=== PATIENT | female | born 1995 | race Caucasian/White ===

== ENCOUNTER 2025-05-07 10:47 | Emergency (ER) | payer OTHER, SELFPAY ==
[2025-05-07 10:54] VITALS: BP 113/82
--- NOTE | 2025-05-07 11:23 | ED.GENMED ---
History of Present Illness
General
Chief Complaint: Swelling
Source: patient
Exam Limitations: none
Time Seen by Provider: 05/07/25 11:07
History of Present Illness
History of Present Illness:
29 year old female presents with left hip and thigh pain starting 2 days ago and persistent today. No chest pain or shortness of breath. She does note a 2-hour one-way car trip prior to the onset of her symptoms. No fevers. No known injury
however she does do [employer] regularly. She denies calf pain. She did any medications. The pain is made worse if she lies flat and is better if she is bent. She was seen at the urgent care earlier today and sent here for evaluation for possible
DVT
Phy Exam
Physical Exam
Physical Exam:
General: Well-appearing female no acute respiratory distress
HEENT normal cephalic atraumatic
Musculoskeletal exam left thigh slightly tender over the anterior thigh in the inguinal region. No deformities. Increased pain with internal rotation of the hip.
Vascular 2+ DP pulse bilateral feet
Neurologic: Good sensation bilateral legs
Course
Orders/Labs/Results
Orders:
Orders
05/07/25 11:22
CR Hip - LT w/wo Pel 2-3 Vw* Urgent
Comment:
Reason For Exam: left groin pain
Include a pelvis x-ray?: Yes
Venous Doppler Lwr Ext Left [US Periph Venous LOWER Ext LT] Urgent
Comment:
Reason For Exam: pain in thigh
Vital Signs
Initial and Last Documented VS:
Initial Vital Signs
Temp Pulse Resp BP Pulse Ox
98.1 F 96 18 113/82 98
05/07/25 10:54 05/07/25 10:54 05/07/25 10:54 05/07/25 10:54 05/07/25 10:54
Last Documented Vital Signs
Temp Pulse Resp BP Pulse Ox
98.1 F 96 18 113/82 98
05/07/25 10:54 05/07/25 10:54 05/07/25 10:54 05/07/25 10:54 05/07/25 11:26
MDM/Problems Addressed
Differential Diagnosis Includes:
Left leg and upper thigh pain atraumatic in nature. Consider radiculopathy versus arthropathy of some type versus DVT.
Will obtain x-rays of the hip and ultrasound of the leg
*Pulse Oximetry
SaO2: 98
Oxygen Mode of Delivery: Room air
Patient hypoxic: no
*Critical Care Note
Total Time (30-74mins, 75-104mins- exclusive of procedures): Not Applicable
Update Note
Update Note:
Ultrasound negative for DVT x-ray negative for acute bony abnormality. Suspect possible radiculopathy versus inflammation of the hip. Recommend anti-inflammatories and follow-up with orthopedics. Stable for discharge
ED Attending Note
-
Portions of this chart may have been created with voice recognition software.� Occasional wrong word or��sound alike� substitutions may have occurred due to the inherent limitations of voice recognition software.
Discharge Plan
Departure
Patient Disposition: Home (Routine Discharge)
Date of Disposition: 05/07/25
Time of Disposition: 13:49
Patient with high blood pressure during this ER visit?: No
Discharge Problem:
Acute thigh pain
Prescriptions:
No Action
No Current Medications
0
Referrals:
Paul Angeles MD [Active, Orthopedics]
UNKNOWN - PT DOES,NOT KNOW [Family Provider]
Activity Restrictions/Additional Instructions:
Use ibuprofen for pain. Follow-up with orthopedics for persistent symptoms. Return
Interventions
Interventions:
*Risk Screen - Suicide Last Done: 05/07/25 10:54
*General Assessment Last Done: 05/07/25 10:54
*Neglect/Abuse Screening Last Done: 05/07/25 10:54
*ED COVID-19 Vaccine History Last Done: 05/07/25 10:58
*ED Influenza Vaccine History Last Done: 05/07/25 10:58
ED- Cardiac Assessment Last Done: 05/07/25 11:20
ED- Pulmonary Assessment Last Done: 05/07/25 11:20
ED-Skin Assessment Last Done: 05/07/25 11:20
Discharge Date and Time
Print Language: NAURUAN
[2025-05-07 14:09] VITALS: BP 124/68
== END 2025-05-07 14:10 | disposition home or self-care (01) ==
LOC: EMR 10:47
PROVIDERS: EMERGENCY PHYSICIAN Emergency Medicine
DX: M79.652 Pain in left thigh (principal)
CPT/HCPCS: 99284; 73502; 93971